=== PATIENT | male | born 1995 | race Caucasian/White ===

== ENCOUNTER 2025-03-29 01:44 | Emergency (ER) | payer SELFPAY ==
[~2025-03-29] VITALS: Ht 182.9 cm; Wt 81.3 kg
--- NOTE | 2025-03-29 03:42 | DVH ---
CHEST RADIOGRAPH Indication: chest pain Technique: Frontal and lateral view of the chest was obtained Comparison: None FINDINGS: Lines and Tubes: None Lungs: Clear Pleura: No effusion. No pneumothorax. Cardiomediastinal contours: Unremarkable Bones: Unremarkable IMPRESSION: 1. No evidence of acute disease.
== END 2025-03-29 04:13 | disposition left against medical advice (07) ==
LOC: ER 01:44
DX: R07.89 Other chest pain (principal); Z53.21 Procedure and treatment not carried out due to patient leaving prior to being seen by health care provider
CPT/HCPCS: 71046